=== PATIENT | female | born 1965 | race Hispanic/Latino ===

== ENCOUNTER 2019-08-21 05:28 | Inpatient (IN) ==
[2019-08-13 11:58] LABS: URINE SOURCE VOIDED
[2019-08-13 12:00] LABS: BILIRUBIN URINE NEGATIVE (NEGATIVE); BLOOD URINE NEGATIVE (NEGATIVE); COLOR STRAW; GLUCOSE URINE NEGATIVE (NEGATIVE); KETONE URINE NEGATIVE (NEGATIVE); LEUKOCYTES URINE NEGATIVE (NEGATIVE); NITRITE URINE NEGATIVE (NEGATIVE); PH URINE 6.5; PROTEIN URINE NEGATIVE (NEGATIVE); SP GRAVITY URINE 1.007; TURBIDITY URINE CLEAR (CLEAR); UROBILINOGEN URINE NORMAL (NORMAL)
[2019-08-13 12:02] LABS: UR EPITHELIAL CELLS <10 /HPF (<10); URINE BACTERIA NEGATIVE /HPF; URINE RBC <10 /HPF (<10); URINE WBC <10 /HPF (<10)
[2019-08-13 12:22] LABS: BASO# 0.02 X1000 (0.0-0.2); BASO% 0.5 % (0.0-0.8); EOS# 0.11 X1000 (0.0-0.7); EOS% 2.6 % (0.0-10.0); HEMATOCRIT 41.8 % (37.0-47.0); HEMOGLOBIN 13.4 g/dL (12.0-16.0); LYMPH# 2.01 X1000 (1.2-3.4); LYMPH% 48.3 % (20.5-51.1); MCH 27.6 PG (27-31); MCHC 32.1 g/dL (33-37); MCV 86.2 FL (81-99); MONO# 0.34 X1000 (0.11-0.59); MONO% 8.2 % (1.7-9.3); MPV 10.2 FL (7.4-10.4); NEUT# 1.68 X1000 (1.4-6.5); NEUT% 40.4 % (42.2-75.2); PLT 236 X1000 (130-400); RBC 4.85 XMIL (4.2-5.4); RDW 14.7 % (11.5-14.5); WBC 4.16 X1000 (4.8-10.8)
--- NOTE | 2019-08-20 21:33 | HISTORY AND PHYSICAL ---
CHIEF COMPLAINT: Abnormal uterine bleeding. HISTORY OF PRESENT ILLNESS: Ms. Antonio is a 54-year-old, G2, P2, who presents with complaint of abnormal uterine bleeding/heavy menstrual bleeding over the past 2 to 3 years, the patient admits to medical management with Depo-Provera, Provera p.o. pills and combined hormonal contraceptive methods; however, no resolution noted with medical management. The patient was counseled on other treatment options; however, requesting definitive management with hysterectomy. PAST MEDICAL HISTORY: Anemia, hyperlipidemia, uterine fibroids. PAST SURGICAL HISTORY: section x1. 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 Denies STD exposure. OBSTETRICAL HISTORY: G2, P2, 1 full-term vaginal delivery, 1 full-term delivery. MEDICATIONS: Ferrous sulfate 325 mg p.o. daily, rosuvastatin 10 mg p.o. daily. ALLERGIES: No known drug allergies. SOCIAL HISTORY: Denies tobacco, alcohol, or drug use. FAMILY HISTORY: Noncontributory. VITAL SIGNS: Temp 97.1 degrees Fahrenheit, pulse rate 72, blood pressure 133/81, weight 155 pounds, height 5 feet 5 inches, BMI 25.7 kg/m2. PHYSICAL EXAMINATION: GENERAL: No acute distress. Alert, awake, and oriented x3. CARDIOVASCULAR: Regular rate and rhythm. Positive S1, S2. RESPIRATORY: Clear to auscultation. Normal breath sounds. Negative rhonchi, wheezes, or rales. ABDOMINAL EXAM: Normal bowel sounds. Nontender, soft. PELVIC EXAM: External exam normal. Bimanual exam normal. Uterus mobile, about 14 to 15 cm in size. No cervical motion tenderness. IMAGING: Ultrasound 14.2 x 9.2 x 7.2 cm size uterus. Anterior fibroid measuring 3.7 x 3 cm. Posterior fibroid measuring 2.1 x 1.4 cm. Intramural fibroid measuring 7.1 x 3.7 x 8 cm. PATHOLOGY: Endometrial biopsy showed secretory endometrium. Pap smear showed negative intraepithelial lesions or malignancies. ASSESSMENT: Mrs. Antonio is a 54-year-old, G2, P2 with abnormal uterine bleeding/heavy menstrual bleeding secondary to leiomyomas. PLAN: Discussed treatment options with concerning other medical management including progesterone and Lupron to control bleeding. Patient declined. Discuss surgical management, not limited to myomectomy, uterine ablation, uterine artery embolization, and hysterectomy. The patient requesting definitive management via hysterectomy with bilateral salpingo- oophorectomy. Discussed surgical options with vaginal versus laparoscopic versus abdominal hysterectomy. Explained vaginal hysterectomy least invasive; however, due to size of the uterus and with uterine fibroids, recommend abdominal route. Discussed associated risk of procedure not limited to bleeding, infection, injury to surrounding organs including the bowel, bladder or the ureters and blood vessels. The patient understands risks and agrees to procedure. Discussed importance of medical optimization prior to procedure, the patient advised NPO after midnight the day prior to procedure and will hold all medication on day of procedure. [facility] CENTERJessika
[2019-08-21] MEDS ORDERED: LR 1,000 ML ONE ×2 (05:57→08:56)
[2019-08-21] MEDS ORDERED: KEFZOL 1 GM/D5W 2 GM/100 ML IVPB ONE (05:57)
[2019-08-21] MEDS ORDERED: ZEMURON ONE (06:17)
[2019-08-21] MEDS ORDERED: XYLOCAINE-MPF 2% ONE (06:17)
[2019-08-21] MEDS ORDERED: DIPRIVAN 1% ONE (06:18)
[2019-08-21] MEDS ORDERED: VERSED ONE (06:18)
[2019-08-21] MEDS ORDERED: QUELICIN (DOSE) ONE (06:18)
[2019-08-21] MEDS ORDERED: FENTANYL ONE (06:18)
--- NOTE | 2019-08-21 06:44 | H&P REVIEW ---
H&P Update H&P Review: H&P was reviewed and patient was examined, No change has occurred in the patient's condition
[2019-08-21] MEDS ORDERED: DECADRON ONE (06:55)
[2019-08-21] MEDS ORDERED: TORADOL ONE (06:55)
[2019-08-21] MEDS ORDERED: ZOFRAN ONE (06:55)
[2019-08-21] MEDS ORDERED: OFIRMEV 1000 MG/ISOTONIC SOLN 1,000 MG/100 ML BOTTLE ONE (06:55)
[2019-08-21] MEDS ORDERED: ROBINUL ONE ×2 (06:57→07:53)
[2019-08-21] MEDS ORDERED: NEOSTIGMINE ONE (07:53)
[2019-08-21] MEDS ORDERED: PHENERGAN IV PRN ×2 (08:55→10:00)
[2019-08-21] MEDS ORDERED: ZOFRAN IV PRN ×2 (08:55→10:00)
[2019-08-21] MEDS ORDERED: SODIUM CHLORIDE 0.9% INJ PRN ×2 (08:55→10:00)
[2019-08-21] MEDS ORDERED: MOTRIN PO PRN (08:55)
[2019-08-21] MEDS: DILAUDID ONE ×4 (09:02→09:38)
[2019-08-21] MEDS: DILAUDID PCA VIAL ONE (09:25)
[2019-08-21] MEDS: APRESOLINE ONE (09:44)
[2019-08-21] MEDS ORDERED: DILAUDID PCA VIAL IV PRN (10:00)
[2019-08-21] MEDS ORDERED: LR 1,000 ML IV SCH (10:00)
[2019-08-21] MEDS ORDERED: NARCAN IV PRN (10:00)
[2019-08-21] MEDS ORDERED: BENADRYL IV PRN (10:00)
[2019-08-21] MEDS: MYLICON PO SCH ×4 (12:08→20:36)
[2019-08-21] MEDS: LR 1,000 ML IV SCH ×2 (12:12→17:32)
[2019-08-21] MEDS: PERIDEX MT SCH ×2 (12:12→20:36)
[2019-08-21] MEDS: COLACE PO SCH ×2 (12:12→20:36)
[2019-08-21 13:02] LABS: URINE SOURCE CATH
[2019-08-21 13:06] LABS: BILIRUBIN URINE NEGATIVE (NEGATIVE); BLOOD URINE TRACE (NEGATIVE); COLOR YELLOW; GLUCOSE URINE NEGATIVE (NEGATIVE); KETONE URINE TRACE mg/dL (NEGATIVE); LEUKOCYTES URINE NEGATIVE (NEGATIVE); NITRITE URINE NEGATIVE (NEGATIVE); PH URINE 6.5; PROTEIN URINE NEGATIVE (NEGATIVE); SP GRAVITY URINE 1.016; TURBIDITY URINE HAZY (CLEAR); UROBILINOGEN URINE NORMAL (NORMAL)
[2019-08-21 13:10] LABS: UR EPITHELIAL CELLS <10 /HPF (<10); URINE BACTERIA NEGATIVE /HPF; URINE RBC <10 /HPF (<10); URINE WBC <10 /HPF (<10)
[2019-08-21 13:12] LABS: URINE CRYSTALS NONE SEEN
[2019-08-21] MEDS: OFIRMEV 1000 MG/ISOTONIC SOLN 1,000 MG/100 ML BOTTLE IV SCH ×2 (14:36→20:36)
[2019-08-21] MEDS: TORADOL IV SCH ×2 (14:36→20:36)
[2019-08-21] MEDS: AMBIEN PO PRN (20:44)
[2019-08-21] MEDS ORDERED: PERIDEX MT SCH (21:00)
[2019-08-22] MEDS: LR 1,000 ML IV SCH ×2 (01:18→09:24)
[2019-08-22] MEDS: OFIRMEV 1000 MG/ISOTONIC SOLN 1,000 MG/100 ML BOTTLE IV SCH ×2 (01:18→09:20)
[2019-08-22] MEDS: TORADOL IV SCH ×4 (02:14→23:37)
[2019-08-22 07:16] LABS: HEMATOCRIT 31.3 % (37.0-47.0); HEMOGLOBIN 10.1 g/dL (12.0-16.0); MCH 28.5 PG (27-31); MCHC 32.3 g/dL (33-37); MCV 88.2 FL (81-99); MPV 10.3 FL (7.4-10.4); RBC 3.55 XMIL (4.2-5.4); RDW 14.4 % (11.5-14.5); WBC 8.97 X1000 (4.8-10.8)
[2019-08-22] MEDS: COLACE PO SCH ×2 (09:20→21:26)
[2019-08-22] MEDS: MYLICON PO SCH ×4 (09:20→21:26)
[2019-08-22] MEDS: PERIDEX MT SCH ×2 (09:20→21:26)
[2019-08-22] MEDS: DILAUDID PCA VIAL ONE (11:55)
[2019-08-22] MEDS: APRESOLINE ONE (11:55)
[2019-08-22] MEDS: DILAUDID ONE ×2 (11:55)
--- NOTE | 2019-08-22 12:46 | PROVIDER PROGRESS NOTE ---
- Subjective Pt seen and examined. Pt is POD#1 s/p RICHI-BSO. Reports pain well controlled via UKE OPERATOR. Ambulating and urinating w/o difficulty. Reports 2 episodes of emesis with ambulation. Pt currently on anti-flatulence diet. Denies Flatus or BM. Denies SOB/CP/F/C. Physical Exam Objective Vital Signs - 8 hr 08/22/19 08:37 08/22/19 10:17 08/22/19 12:00 Temperature 98.1 F 98.4 F Pulse Rate 71 71 Respiratory Rate 16 18 Blood Pressure 158/80 168/90 O2 Sat by Pulse Oximetry 94 L 97 94 L - Constitutional General Appearance: appears well, alert, no apparent distress - RESPIRATORY Respiratory: lungs clear, normal breath sounds - CARDIOVASCULAR Cardiovascular: regular rate, rhythm - GASTROINTESTINAL (ABDOMEN) Abdominal Exam: non tender, soft (Bandage C/D/I) - MUSCULOSKELETAL Extremity: non-tender, no calf tenderness - PSYCHIATRIC Psych/Mental Status: normal mood/affect, oriented x 3 Active Medications Generic Name Dose Route Start Last Admin Trade Name Freq PRN Reason Stop Dose Admin Hydrocodone Bitart/Acetaminophen 1 each 08/21/19 08:55 [place]-10 PO Q4H PRN PRN Pain (7-10 on Pain Scale) Chlorhexidine Gluconate 15 ml 08/21/19 09:00 08/22/19 09:20 Peridex MT 15 ml BID BELLA Administration Diphenhydramine HCl 12.5 - 25 mg 08/21/19 10:00 Benadryl IV Q6H PRN PRN Itching Docusate Sodium 100 mg 08/21/19 09:00 08/22/19 09:20 Colace PO 100 mg BID BELLA Administration Hydromorphone HCl 0 mg 08/21/19 10:00 Dilaudid Textile Finisher Vial IV PRN PRN Pain Lactated Ringer's 1,000 mls @ 150 mls/hr 08/21/19 09:00 08/22/19 09:24 Lr IV 150 mls/hr .Q6H40M BELLA Administration Acetaminophen 1,000 mg in 100 mls @ 400 mls/hr 08/21/19 09:00 08/22/19 09:20 Ofirmev 1000 Mg/Isotonic Soln IV 400 mls/hr Q6H BELLA Administration Ibuprofen 800 mg 08/21/19 08:55 Motrin PO Q8H PRN PRN Pain (1-6 on Pain Scale) Naloxone HCl 0.2 mg 08/21/19 10:00 Narcan IV PRN PRN DECREASED RESPIRATORY RATE Ondansetron HCl 4 mg 08/21/19 08:55 08/22/19 09:19 Zofran IV 4 mg Q8H PRN PRN Administration Nausea Ondansetron HCl 4 mg 08/21/19 10:00 Zofran IV Q24H PRN PRN Nausea Promethazine HCl 12.5 mg 08/21/19 08:55 Phenergan IV Q2H PRN PRN Pain (7-10 on Pain Scale) Promethazine HCl 12.5 mg 08/21/19 10:00 Phenergan IV Q6H PRN PRN Nausea Simethicone 80 mg 08/21/19 09:00 08/22/19 09:20 Mylicon PO 80 mg PC + HS BELLA Administration Sodium Chloride 10 ml 08/21/19 08:55 Sodium Chloride 0.9% INJ PRN PRN Dilute Phenergan for IV use Sodium Chloride 10 ml 08/21/19 10:00 Sodium Chloride 0.9% INJ PRN PRN TO DILUTE PHENERGAN FOR IV USE Zolpidem Tartrate 5 mg 08/21/19 08:55 08/21/19 20:44 Ambien PO 5 mg HS PRN PRN Administration Sleep Laboratory Results - last 24 hr 08/21/19 08/22/19 12:55 06:28 WBC 8.97 RBC 3.55 L Hgb 10.1 L Hct 31.3 L MCV 88.2 MCH 28.5 MCHC 32.3 L RDW Std Deviation 14.4 Plt Count 195 MPV 10.3 Urine Source CATH Urine Color YELLOW Urine Turbidity HAZY Urine pH 6.5 Ur Specific [place] 1.016 Urine Protein NEGATIVE Ur Glucose (Stick) NEGATIVE Ur Ketones (Stick) TRACE A Urine Blood TRACE A Urine Nitrite NEGATIVE Urine Bilirubin NEGATIVE Urobilinogen Dipstick NORMAL Urine Leukocytes NEGATIVE Urine WBC (Auto) <10 Urine RBC (Auto) <10 U Epithel Cells (Auto) <10 Urine Bacteria (Auto) NEGATIVE Urine Crystals NONE SEEN Small Round Cells Not Reportable Urine Casts Not Reportable Urine Yeast-like Cells Not Reportable - Assessment & Plan (1) S/P RICHI-BSO Status: Resolved - Progress Note Disposition: Mrs. Antonio is a 54 yo POD#1 s/p RICHI/BSO secondary to AUB/HMB-Leiomyomas 1. HD stable 2. Pain well controlled on UKE OPERATOR. Will transition to PO meds 3. continue anti-flatulence diet. Advance as directed 4. OOB to ambulation 5. BP mildly elevated. Will monitor closely and consider for antiHTN meds if BPs remain high 6. Cummings removed 7. Continue routine post-op care
[2019-08-22] MEDS: NORCO-10 PO PRN ×2 (14:31→18:58)
[2019-08-22] MEDS: TRANDATE PO SCH (21:26)
[2019-08-22] MEDS: AMBIEN PO PRN (21:26)
[2019-08-23] MEDS: TORADOL IV SCH (05:09)
[2019-08-23] MEDS ORDERED: DULCOLAX PR ONE (07:59)
--- NOTE | 2019-08-23 08:15 | PROVIDER PROGRESS NOTE ---
- Subjective Pt seen and examined. Pt is POD#2 s/p RICHI-BSO. Reports pain well controlled on Toradol liliana PO Elsa. Ambulating and urinating w/o difficulty. Tolerating clears diet, denies N/V. Reports flatus, denies BM. Denies SOB/CP/F/C. Physical Exam Objective Vital Signs - 8 hr 08/23/19 04:00 08/23/19 07:20 Temperature 98.4 F 98.4 F Pulse Rate 76 73 Respiratory Rate 18 16 Blood Pressure 166/82 164/76 O2 Sat by Pulse Oximetry 100 97 - Constitutional General Appearance: appears well, alert, no apparent distress - RESPIRATORY Respiratory: lungs clear, normal breath sounds - CARDIOVASCULAR Cardiovascular: regular rate, rhythm - GASTROINTESTINAL (ABDOMEN) Abdominal Exam: non tender, soft - GENITOURINARY Female Genitalia/Pelvic Exam: external exam normal - MUSCULOSKELETAL Extremity: non-tender, no calf tenderness - SKIN Integumentary: normal color, warm/dry (Incision: kristi insitu. C/D/I. 2 kristi removed from middle of incision. [place] displaced from prior midline incision and scarring.). negative: swelling, tenderness - PSYCHIATRIC Psych/Mental Status: normal mood/affect, oriented x 3 Active Medications Generic Name Dose Route Start Last Admin Trade Name Freq PRN Reason Stop Dose Admin Hydrocodone Bitart/Acetaminophen 1 each 08/21/19 08:55 08/22/19 18:58 [place]-10 PO 1 each Q4H PRN PRN Administration Pain (7-10 on Pain Scale) Chlorhexidine Gluconate 15 ml 08/21/19 09:00 08/22/19 21:26 Peridex MT 15 ml BID BELLA Administration Diphenhydramine HCl 12.5 - 25 mg 08/21/19 10:00 Benadryl IV Q6H PRN PRN Itching Docusate Sodium 100 mg 08/21/19 09:00 08/22/19 21:26 Colace PO 100 mg BID BELLA Administration Hydromorphone HCl 0 mg 08/21/19 10:00 Dilaudid Histologic Aide Vial IV PRN PRN Pain Lactated Ringer's 1,000 mls @ 150 mls/hr 08/21/19 09:00 08/22/19 09:24 Lr IV 150 mls/hr .Q6H40M BELLA Administration Ibuprofen 800 mg 08/23/19 12:00 Motrin PO TID BELLA Labetalol HCl 100 mg 08/22/19 21:00 08/22/19 21:26 Trandate PO 100 mg BID BELLA Administration Naloxone HCl 0.2 mg 08/21/19 10:00 Narcan IV PRN PRN DECREASED RESPIRATORY RATE Ondansetron HCl 4 mg 08/21/19 08:55 08/22/19 09:19 Zofran IV 4 mg Q8H PRN PRN Administration Nausea Ondansetron HCl 4 mg 08/21/19 10:00 Zofran IV Q24H PRN PRN Nausea Promethazine HCl 12.5 mg 08/21/19 08:55 Phenergan IV Q2H PRN PRN Pain (7-10 on Pain Scale) Promethazine HCl 12.5 mg 08/21/19 10:00 Phenergan IV Q6H PRN PRN Nausea Simethicone 80 mg 08/21/19 09:00 08/22/19 21:26 Mylicon PO 80 mg PC + HS BELLA Administration Sodium Chloride 10 ml 08/21/19 08:55 Sodium Chloride 0.9% INJ PRN PRN Dilute Phenergan for IV use Sodium Chloride 10 ml 08/21/19 10:00 Sodium Chloride 0.9% INJ PRN PRN TO DILUTE PHENERGAN FOR IV USE Zolpidem Tartrate 5 mg 08/21/19 08:55 08/22/19 21:26 Ambien PO 5 mg HS PRN PRN Administration Sleep Laboratory Tests 08/13/19 08/13/19 08/13/19 11:30 11:30 11:30 WBC 4.16 L RBC 4.85 Hgb 13.4 Hct 41.8 MCV 86.2 MCH 27.6 MCHC 32.1 L RDW Std Deviation 14.7 H Plt Count 236 MPV 10.2 Immature Gran % (Auto) 0.0 Neut % (Auto) 40.4 L Lymph % (Auto) 48.3 [place] % (Auto) 8.2 Eos % (Auto) 2.6 Baso % (Auto) 0.5 Immature Gran # (Auto) 0.00 Neut # (Auto) 1.68 Lymph # (Auto) 2.01 [place] # (Auto) 0.34 Eos # (Auto) 0.11 Baso # (Auto) 0.02 Serum , Qual NEGATIVE Urine Source VOIDED Urine Color STRAW Urine Turbidity CLEAR Urine pH 6.5 Ur Specific [place] 1.007 Urine Protein NEGATIVE Ur Glucose (Stick) NEGATIVE Ur Ketones (Stick) NEGATIVE Urine Blood NEGATIVE Urine Nitrite NEGATIVE Urine Bilirubin NEGATIVE Urobilinogen Dipstick NORMAL Urine Leukocytes NEGATIVE Urine WBC (Auto) <10 Urine RBC (Auto) <10 U Epithel Cells (Auto) <10 Urine Bacteria (Auto) NEGATIVE Urine Crystals Small Round Cells Urine Casts Urine Yeast-like Cells Blood Type Antibody Screen 08/22/19 06:28 WBC 8.97 RBC 3.55 L Hgb 10.1 L Hct 31.3 L MCV 88.2 MCH 28.5 MCHC 32.3 L RDW Std Deviation 14.4 Plt Count 195 MPV 10.3 Immature Gran % (Auto) Neut % (Auto) Lymph % (Auto) [place] % (Auto) Eos % (Auto) Baso % (Auto) Immature Gran # (Auto) Neut # (Auto) Lymph # (Auto) [place] # (Auto) Eos # (Auto) Baso # (Auto) Serum , Qual Urine Source Urine Color Urine Turbidity Urine pH Ur Specific [place] Urine Protein Ur Glucose (Stick) Ur Ketones (Stick) Urine Blood Urine Nitrite Urine Bilirubin Urobilinogen Dipstick Urine Leukocytes Urine WBC (Auto) Urine RBC (Auto) U Epithel Cells (Auto) Urine Bacteria (Auto) Urine Crystals Small Round Cells Urine Casts Urine Yeast-like Cells Blood Type Antibody Screen - Assessment & Plan (1) S/P RICHI-BSO Status: Resolved - Progress Note Disposition: Mrs. Antonio is a 54 yo POD#2 s/p RICHI/BSO secondary to AUB/HMB-Leiomyomas 1. HD stable 2. Pain well controlled on IV Toradol . Will Ibuprofen 800mg PO q 8 hrs and continue Elsa prn 3. Advance diet to diet 4. Encouraged increased ambulation 5. BP mildly elevated. Started on Labetalol 100mg PO BID 6. Will given Doculax AR 7. Consider d/c home today pending response to diet and pain mgt 8. Home meds printed and in chart 9. Continue routine post-op care
[2019-08-23] MEDS: PERIDEX MT SCH (09:52)
[2019-08-23] MEDS: MYLICON PO SCH ×2 (09:52→13:02)
[2019-08-23] MEDS: TRANDATE PO SCH (09:52)
[2019-08-23] MEDS: COLACE PO SCH (09:53)
[2019-08-23 11:19] VITALS: BP 141/76
[2019-08-23] MEDS ORDERED: MOTRIN PO SCH (12:00)
--- NOTE | 2019-09-16 23:17 | OPERATIVE NOTE ---
PROCEDURE DATE: 08/21/2019 SURGEON: Lisa Galaviz DO. CORPORATE VP ADVERTISING & ONLINE: Vladimir Castellon III, MD. PREOPERATIVE DIAGNOSIS: Multigravida with uterine fibroids and abnormal uterine bleeding/heavy menstrual bleeding. POSTOPERATIVE DIAGNOSIS: Multigravida with uterine fibroids and abnormal uterine bleeding/heavy menstrual bleeding. PROCEDURE PERFORMED: Total abdominal hysterectomy with bilateral salpingo-oophorectomy. ANESTHESIA: General endotracheal anesthesia. FINDINGS: A 14 cm size uterus with fibroids. Normal bilateral ovaries and fallopian tubes. COMPLICATIONS: None. ESTIMATED BLOOD LOSS: 150 mL. SPECIMENS REMOVED: Cervix, uterus, bilateral tubes and ovaries. DRAINS: None. URINE OUTPUT: 400 mL of clear urine. SURGICAL RISKS: The patient was informed of the risks and benefits of a total abdominal hysterectomy with bilateral salpingo oophorectomy. Risks included but were not limited to bleeding, infection, injury to surrounding organs or tissue. The patient was counseled extensively on inability to become following hysterectomy. Expressed understanding of risks. The patient was counseled that bilateral salpingo-oophorectomy results in surgical menopause for boby menopausal woman. The patient expressed understanding of the risks involved. All questions were answered and the patient consented to the procedure. DESCRIPTION OF PROCEDURE: The patient was taken to the operating room where a time-out was performed to confirm correct patient and correct procedure. The patient was given preoperative prophylactic intravenous antibiotics. General anesthesia was established. The patient was then positioned in the operating table in dorsal lithotomy position. The patient was then prepped and draped in usual sterile fashion. An indwelling ureteral catheter was inserted. A Pfannenstiel skin incision was made in the skin and sharp dissection was carried out over the subsequent layers of tissue including the fascia using the scalpel and the Bovie electrocautery. Hemostasis was maintained using the Bovie electrocautery. The fascial incision was extended bilaterally using the Bowen scissors and Bovie electrocautery. The inferior edge of the fascial incision was grasped with Aman clamps, tented up and the underlying rectus muscles were dissected off using the Bovie electrocautery. Attention was then turned to the superior edge which was grasped with Aman clamps, tented up and the underlying rectus muscles dissected off using the Bovie electrocautery. The rectus muscles were then divided at the midline and the peritoneum was identified and bluntly entered at the superior margin taking care to avoid the bladder. The peritoneal incision was extended superiorly inferiorly using Metzenbaum scissors with good visualization of the bladder. The Louis self-retaining retractor was then inserted into the abdominal cavity and opened for pelvic exposure. The patient was placed in Trendelenburg position and the intestines were placed into the upper abdomen and held in place using packing. Straight Mechelle clamps were then placed bilaterally over the round ligaments, fallopian tubes and ovarian ligaments as close to the uterine corpus as possible to maintain hemostasis bilaterally. The round ligaments were then suture ligated using 0 Vicryl. The sutures were tagged bilaterally with hemostats and left long. The round ligaments were then cauterized and cut using the Bovie electrocautery and the incision was extended into the anterior leaves of the broad ligament to the point of reflection of the bladder, peritoneum on the uterus bilaterally using Metzenbaum scissors. The pelvic course of the ureters were identified bilaterally and care was taken to avoid disruption of the ureters. Bernard Clamps were then used to doubly clamp the infundibulopelvic ligaments lateral to the ovaries. The ligaments were cut using the curved Bowen scissors and ligated using a free tie of 0 Vicryl suture followed by suture ligatures of 0 Vicryl just medial to the free ties bilaterally. The midline reflection of the bladder peritoneum onto the uterus was then freed by extending the incision of the anterior leaves of the broad ligament. The bladder was from the lower uterine segment and the upper cervix by careful sharp and blunt dissection. Mobilization of the bladder away from the cervix and upper anterior vaginal wall was performed. The posterior leaves of the broad ligament were then cut on either side parallel with the lateral side of the uterus down to the point of the origin of the uterosacral ligaments behind the cervix. This allowed for exposure to the uterine vessels which were then skeletonized with the Metzenbaum scissors. The uterine corpus was then retracted to expose the uterine vessels. Using curved Bernard clamps the uterine vessels were bilaterally clamped at the level of the internal cervical os at right angles to the lower uterine segment. The vessels were cut and freed from the uterus by extending the excision around the tips of the clamp. Zero Vicryl sutures were placed in the angles of the incision and at the tips of the clamps taking care to ensure that all vessels were secured by ligatures. The bladder was further mobilized from the cervix at the midline and laterally using sharp and blunt dissection to allow for better visualization. The lower uterine segment was freed from the upper cervix using sharp dissection across the lower uterine segment. The uterus, bilateral tubes and bilateral ovaries were then removed and the cervix was grasped anteriorly and posteriorly using Aman clamps. The bladder again was further dissected off the cervix bluntly and sharply. The free margins of the cervix and the anterior vaginal fornix were then identified. The cardinal ligaments were doubly clamped with Bernard clamps and cut using the scalpel. The pedicles were suture ligated using 0 Vicryl sutures. This was repeated until the level of the lateral vaginal fornix was reached. The curved Bernard's were then used bilaterally and applied under the external cervical os bilaterally and Leora scissors were used to amputate the cervix from the vagina. The lateral vaginal fornices were then suture ligated and secured to the cardinal and uterosacral ligaments. The vaginal cuff was then closed using 0 Vicryl in a figure of 8 fashion. The abdominal cavity was irrigated with normal saline solution and good hemostasis was confirmed. The retractor and laparotomy pads were removed and hemostasis again confirmed. The peritoneum was reapproximated using 2-0 plain in a running nonlocking fashion. The fascia was reapproximated using 0 Vicryl in a running nonlocking fashion. The subcutaneous fat was reapproximated using 2-0 plain in a running nonlocking fashion. The skin was reapproximated using kristi. All needle, sponge, and instrument counts were noted to be correct x2 at the completion of the procedure. The patient tolerated the procedure well and was transferred to the recovery room in stable condition.
--- NOTE | 2019-09-17 12:46 | DISCHARGE SUMMARY ---
ADMISSION DATE: 08/21/2019 DISCHARGE DATE: 08/23/2019 ADMITTING PHYSICIAN: Dr. Lisa Galaviz. CONDITION ON DISCHARGE: Stable. FINAL DIAGNOSIS: Multigravida, desires definitive management for abnormal uterine bleeding/heavy menstrual bleeding with fibroids and dysfunctional uterine bleeding. PROCEDURES PERFORMED: Total abdominal hysterectomy with bilateral salpingo-oophorectomy. HOSPITAL COURSE: The patient presented to [facility] preoperative area for a scheduled total abdominal hysterectomy with bilateral salpingo-oophorectomy secondary to dysfunctional uterine bleeding due to fibroids. She underwent a normal RICHI-BSO on 08/21/2019. She had a routine postoperative course. Postoperative day #1, patient was placed on an anti- flatulence diet. She denied any nausea, vomiting, and denied any flatus or bowel movement. The patient had been walking extensively to assist with bowel movement and flatus. 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 pain medications. On hospital course day #2, the patient continued to ambulate without any complications and urinating without any difficulty. Pain was well controlled. Was advanced to regular diet and admitted to flatus and bowel movement. The patient expressed desire for discharge home due to well-controlled pain management on p.o. pain medications and passage of bowel movement. DISCHARGE MEDICATIONS: 1. Colace 100 mg p.o. daily. 2. Labetalol 100 mg p.o. b.i.d. 3. Ibuprofen 800 mg p.o. q.8 hours. 4. [place] 10/325 mg 1 tablet p.o. q.6 hours p.r.n. as needed pain. 5. Zofran 4 mg p.o. q.8 hours p.r.n. as needed. DISCHARGE INSTRUCTIONS: The patient instructed to notify doctor with temperatures greater than 100.4 degrees Fahrenheit, severe vaginal bleeding, foul-smelling vaginal discharge, or severe abdominal pain. The patient instructed to place nothing in vagina for approximately 6 weeks. Advised on no baths, tampons, douching, or sex. FOLLOWUP APPOINTMENT: Patient instructed to follow up at [facility] in [address] Galaviz.
== END 2019-08-23 13:47 | disposition home or self-care (01) | DRG 743 ==
LOC: SURHOLD 05:28 → 4N 07:49
PROVIDERS: ADMIT Obstetrics & Gynecology; ATTEND Obstetrics & Gynecology